=== PATIENT | male | born 1985 | race Caucasian/White ===

== ENCOUNTER 2022-11-08 10:10 | Emergency (ER) | payer OTHER, SELFPAY ==
[2022-11-08 10:43] VITALS: BP 125/83; PULSE 70; RESP 18; TEMP 36.4; O2SAT 97
--- NOTE | 2022-11-08 13:11 | PC.NURSE ---
Provider attempted to see patient and patient got upset that she turned the light on. Provider walked into room and turned light on and patient immediately began raising his voice to provider about how she did not give his eyes time to adjust . patient then got out of bed and stated he was leaving. Patient then unhooked himself from the monitor and walked out of department stating that [facility] is terrible .
== END 2022-11-08 13:14 | disposition left against medical advice (07) ==
DX: S20.224A Contusion of middle back wall of thorax, initial encounter (principal); X58.XXXA Exposure to other specified factors, initial encounter
CPT/HCPCS: 99199